=== PATIENT | male | born 1935 | race African-American/Black ===

== ENCOUNTER 2019-09-26 11:27 | Emergency (ER) | payer SELFPAY ==
[~2019-09-26] VITALS: Ht 188 cm; Wt 87.3 kg
[2019-09-26 11:30] VITALS: BP 133/59
[2019-09-26] MEDS ORDERED: AMLO2.5T96 PO (11:35)
[2019-09-26] MEDS ORDERED: LOSA25TA71 PO (11:35)
== END 2019-09-26 12:19 | disposition home or self-care (01) ==
LOC: EMS 11:30
DX: K13.0 Diseases of lips (principal); I10 Essential (primary) hypertension; F17.210 Nicotine dependence, cigarettes, uncomplicated; Z88.0 Allergy status to penicillin; Z88.2 Allergy status to sulfonamides; Z79.899 Other long term (current) drug therapy
CPT/HCPCS: 99406; Z7502